=== PATIENT | male | born 1980 | race Caucasian/White ===

== ENCOUNTER 2018-11-28 11:32 | Emergency (ER) | payer MEDICAID ==
[~2018-11-28] VITALS: Ht 165.1 cm; Wt 75.0 kg
[2018-11-28] MEDS ORDERED: QUET50TA PO (12:21)
[2018-11-28] MEDS: MORPHINE SULFATE 4 MG/ML SYRINGE IVP ONE (12:24)
[2018-11-28] MEDS: KETOROLAC TROMETHAMINE 30 MG/ML VIAL IVP ONE (12:26)
[2018-11-28] MEDS ORDERED: QUET100T PO (13:34)
[2018-11-28] MEDS: ACETAMINOPHEN 500 MG TABLET PO ONE (13:41)
[2018-11-28] MEDS: AZITHROMYCIN 250 MG TABLET PO ONE (13:41)
[2018-11-28] MEDS: CefTRIAXone SODIUM 250 MG in DEXTROSE 5%-WATER 50 ML IV ONE (13:55)
[2018-11-28 14:27] LABS: APPEARANCE,URINE CLOUDY (CLEAR); BILIRUBIN,URINE NEGATIVE (NEGATIVE); GLUCOSE, URINE (UA) NEGATIVE (NEGATIVE); KETONES,URINE TRACE mg/dL (NEGATIVE); LEUKOCYTE ESTERASE ,URINE MODERATE (NEGATIVE); NITRATE,URINE POSITIVE (NEGATIVE); OCCULT BLOOD,URINE LARGE (NEGATIVE); PROTEIN,URINE SEE CONFIRM (NEGATIVE)
[2018-11-28 14:29] LABS: BACTERIA,URINE Many /HPF (None Seen); RBC,URINE Full Field /HPF (0-2); SULFOSALICYLIC ACID,URINE 3+ (Negative); WBC,URINE 26-50 /HPF (0-5)
[2018-11-28 15:02] VITALS: BP 117/68
== END 2018-11-28 15:12 | disposition home or self-care (01) ==
LOC: EMS 11:34 → EDSEX 11:34 → EMS 15:12
DX: N45.1 Epididymitis (principal); N39.0 Urinary tract infection, site not specified
CPT/HCPCS: 76870; 81001; 87077; 87086; 87186; 96365; 96375; 99284; J0696; J2270; J7060

== ENCOUNTER 2020-11-01 16:52 | Emergency (ER) | payer MEDICAID ==
[~2020-11-01] VITALS: Ht 167.6 cm; Wt 105.0 kg
[~2020-11-01 16:52] MED LIST: QUET100T PO
[2020-11-01] MEDS ORDERED: PERTUSS(ACELL),DIPH,TET VAC/PF 0.5 ML SYRINGE IM. ONE (17:45)
[2020-11-01] MEDS ORDERED: BACITRACIN 0.9 GM PACKET OINTMENT TP ONE (17:45)
[2020-11-01] MEDS ORDERED: ACETAMINOPHEN/CODEINE 300-30 MG TABLET PO ONE (17:45)
[2020-11-01] MEDS ORDERED: HYDROGEN PEROXIDE 118 ML SOLUTION TP ONE (17:45)
[2020-11-01 19:27] VITALS: BP 135/69
== END 2020-11-01 20:15 | disposition home or self-care (01) ==
LOC: EMS 17:04
DX: S91.332A Puncture wound without foreign body, left foot, initial encounter (principal); W45.0XXA Nail entering through skin, initial encounter; Y93.89 Activity, other specified; Y92.89 Other specified places as the place of occurrence of the external cause; Y99.8 Other external cause status
CPT/HCPCS: 90471; 90715; 99283